=== PATIENT | male | born 1970 | race Two or more races ===

== ENCOUNTER 2021-03-10 23:39 | Inpatient (IN) | payer MEDICAID, OTHER ==
[~2021-03-10] VITALS: Ht 162.6 cm; Wt 95.4 kg
[2021-03-11] MEDS ORDERED: ACETAMINOPHEN 325 MG TAB PO ONE (00:45)
[2021-03-11] MEDS ORDERED: PIPERACILLIN-TAZO 4.5GM 100 ML IV ONE (01:30)
[2021-03-11] MEDS ORDERED: SODIUM CHLORIDE 0.9% 1,000 ML IV ONE (01:30)
[2021-03-11 01:38] LABS: Basophils # (auto) 0 10 ^3/uL (0-0.2); Basophils % (auto) 0.3 % (0.0-2.0); Eosinophils # (auto) 0 10 ^3/uL (0-0.8); Eosinophils % (auto) 0.1 % (0.0-7.0); Hematocrit 47.1 % (41.0-53.0); Hemoglobin 16.6 g/dL (13.5-17.5); Lymphocytes # (auto) 1.2 10 ^3/uL (0.4-5.4); Lymphocytes % (auto) 8.1 % (10.0-50.0); Mean Corpuscular Hgb Conc. 35.3 g/dL (32.0-36.0); Mean Corpuscular Volume 93.6 fL (80.0-100.0); Monocytes # (auto) 0.8 10 ^3/uL (0-1.3); Monocytes % (auto) 5.4 % (0.0-12.0); Neutrophils % (auto) 86.1 % (37.0-80.0); Red Blood Cells 5.03 10^6/uL (4.5-5.90); Red Cell Distribution Width 12.8 % (11.8-14.3); White Blood Cell 15.1 10^3/uL (4.4-10.8)
[2021-03-11 01:54] LABS: Albumin 3.9 g/dL (3.4-5.0); Calcium 8.8 mg/dL (8.5-10.1); Potassium 3.8 mmol/L (3.5-5.1)
[2021-03-11 01:57] LABS: INR 1.01 (0.9-1.15); Partial Thromboplastin Time 25.5 sec (23.0-31.2)
[2021-03-11 01:58] LABS: BUN/Creatinine Ratio 18.4; Bilirubin, Total 1.5 mg/dL (0.2-1.0); Total Protein 8.1 g/dL (6.4-8.2)
[2021-03-11] MEDS ORDERED: MORPHINE SULF INJ 2 MG/ML SYRINGE 1ML IV PRN (04:30)
[2021-03-11] MEDS ORDERED: NITROGLYCERIN 0.4 MG SL TAB SL PRN (04:30)
[2021-03-11] MEDS ORDERED: ACETAMINOPHEN 325 MG TAB PO PRN (04:30)
[2021-03-11] MEDS ORDERED: DEXTROSE (50%) 50ML SYRG IV PRN (04:30)
[2021-03-11] MEDS ORDERED: ONDANSETRON HCL 4 MG/2 ML VIAL IV PRN ×2 (04:30→14:30)
[2021-03-11] MEDS ORDERED: SODIUM CHLORIDE 0.9% 1,000 ML IV SCH (04:30)
[2021-03-11] MEDS: cefTRIAXone 1GM/50ML D5W 50 ML IV SCH (05:42)
[2021-03-11] MEDS: metroNIDAZOLE 500MG/100ML 100 ML IV SCH ×3 (06:19→23:07)
[2021-03-11] MEDS: ACCU-CHEK COMFORT CURVE STRIP VI SCH ×2 (06:50→11:30)
[2021-03-11] MEDS: InsuLIN REG 1unit/0.01ml Soln (100units/ml) SC SCH ×2 (06:51→11:30)
[2021-03-11 07:09] LABS: Potassium 3.9 mmol/L (3.5-5.1)
[2021-03-11 07:12] LABS: Albumin 3.4 g/dL (3.4-5.0); BUN/Creatinine Ratio 16.1; Calcium 8.1 mg/dL (8.5-10.1)
[2021-03-11 07:21] LABS: Bilirubin, Total 1.6 mg/dL (0.2-1.0); Total Protein 7.3 g/dL (6.4-8.2)
[2021-03-11] MEDS: HYDROcodone-ACET 5/325MG TAB PO PRN (07:57)
[2021-03-11 07:59] LABS: Basophils # (auto) 0.1 10 ^3/uL (0-0.2); Basophils % (auto) 0.5 % (0.0-2.0); Eosinophils # (auto) 0 10 ^3/uL (0-0.8); Hematocrit 43.9 % (41.0-53.0); Hemoglobin 15.6 g/dL (13.5-17.5); Mean Corpuscular Hemoglobin 33.5 pg (28.0-32.0); Mean Corpuscular Hgb Conc. 35.7 g/dL (32.0-36.0); Monocytes # (auto) 1.6 10 ^3/uL (0-1.3); Monocytes % (auto) 9.8 % (0.0-12.0); Neutrophils # (auto) 12.8 10 ^3/uL (1.6-8.6); Neutrophils % (auto) 77.7 % (37.0-80.0); Nucleated Red Blood Cells % 0.1 %; Red Blood Cells 4.67 10^6/uL (4.5-5.90); White Blood Cell 16.5 10^3/uL (4.4-10.8)
[2021-03-11] MEDS ORDERED: ONDANSETRON HCL 4 MG/2 ML VIAL IV ONE (09:45)
[2021-03-11] MEDS ORDERED: fentaNYL CITRATE 100 MCG/2 ML VL IV ONE (09:45)
[2021-03-11] MEDS: FAMOTIDINE (10MG/ML) 2ML VL IV SCH ×2 (10:36→23:07)
[2021-03-11] MEDS ORDERED: BUPIVACAINE 0.25% INJ 50ML VIAL ONE (12:05)
[2021-03-11] MEDS ORDERED: ceFAZolin 1GM/50ML 50 ML IV ONE (12:11)
[2021-03-11] MEDS ORDERED: NEOSTIGMINE 1 MG/ML INJ (10mg/10ML VIAL) IV ONE (12:20)
[2021-03-11] MEDS ORDERED: PHENYLEPHRINE HCL 10 MG/ML VL IV ONE (12:20)
[2021-03-11] MEDS ORDERED: GLYCOPYRROLATE 0.2 MG/ML 1ML VIAL IV ONE (12:20)
[2021-03-11] MEDS ORDERED: fentaNYL CITRATE 100 MCG/2 ML VL ONE (12:21)
[2021-03-11] MEDS ORDERED: MIDAZOLAM HCL 1MG/1ML-2 ML VIAL ONE (12:22)
[2021-03-11] MEDS ORDERED: MEPERIDINE HCL (50 MG/ML) 1 ML VIAL ONE (12:22)
[2021-03-11] MEDS ORDERED: PROPOFOL 10 MG/ML 20 ML IV ONE (12:35)
[2021-03-11] MEDS ORDERED: DexAMETHasone SOD PHOS 10MG/1ML VIAL INJ ONE (12:35)
[2021-03-11] MEDS ORDERED: ACCU-CHEK COMFORT CURVE STRIP VI ONE (14:30)
[2021-03-11] MEDS ORDERED: MORPHINE SULFATE 4 MG/ML SYR/VIAL IV PRN (14:30)
[2021-03-11] MEDS ORDERED: HYDROmorphone HCL 2 MG/ML VL IV PRN (14:30)
[2021-03-11] MEDS ORDERED: LABETALOL HCL 5 MG/ML 4ML SYRINGE IV PRN (14:30)
[2021-03-11] MEDS ORDERED: ePHEDrine SULFATE 50 MG/ML AMP IV PRN (14:30)
[2021-03-11] MEDS ORDERED: hydrALAZINE HCL 20 MG/ML VL IV PRN (14:30)
[2021-03-11] MEDS ORDERED: MIDAZOLAM HCL 1MG/1ML-2 ML VIAL IV PRN (14:30)
[2021-03-11 17:00] VITALS: BP 100/60
[2021-03-11 22:00] VITALS: BP 119/68
[2021-03-11] MEDS ORDERED: InsuLIN REG 1unit/0.01ml Soln (100units/ml) SC SCH (22:00)
[2021-03-12] MEDS: SODIUM CHLORIDE 0.9% 1,000 ML IV SCH ×3 (00:45→09:50)
[2021-03-12 05:00] VITALS: BP 112/68
[2021-03-12] MEDS: metroNIDAZOLE 500MG/100ML 100 ML IV SCH ×3 (05:47→22:14)
[2021-03-12 06:01] LABS: Basophils # (auto) 0 10 ^3/uL (0-0.2); Basophils % (auto) 0.1 % (0.0-2.0); Eosinophils # (auto) 0 10 ^3/uL (0-0.8); Hematocrit 38.5 % (41.0-53.0); Hemoglobin 14.1 g/dL (13.5-17.5); Lymphocytes # (auto) 0.8 10 ^3/uL (0.4-5.4); Lymphocytes % (auto) 7.6 % (10.0-50.0); Mean Corpuscular Hemoglobin 34.9 pg (28.0-32.0); Mean Corpuscular Volume 95.6 fL (80.0-100.0); Monocytes # (auto) 0.9 10 ^3/uL (0-1.3); Neutrophils # (auto) 8.7 10 ^3/uL (1.6-8.6); Neutrophils % (auto) 83.3 % (37.0-80.0); Nucleated Red Blood Cells % 0.1 %; Red Blood Cells 4.03 10^6/uL (4.5-5.90); White Blood Cell 10.5 10^3/uL (4.4-10.8)
[2021-03-12 06:05] LABS: Mean Corpuscular Hgb Conc. 36.5 g/dL (32.0-36.0)
[2021-03-12] MEDS: cefTRIAXone 1GM/50ML D5W 50 ML IV SCH (06:35)
[2021-03-12 06:45] LABS: Albumin 2.7 g/dL (3.4-5.0); BUN/Creatinine Ratio 18.1; Bilirubin, Total 1.5 mg/dL (0.2-1.0); Total Protein 6.1 g/dL (6.4-8.2)
[2021-03-12 09:00] VITALS: BP 113/70
[2021-03-12] MEDS: FAMOTIDINE (10MG/ML) 2ML VL IV SCH ×2 (09:49→22:15)
[2021-03-12 13:11] VITALS: BP 121/75
[2021-03-12 17:00] VITALS: BP 113/68
[2021-03-12 22:00] VITALS: BP 122/78
[2021-03-13 05:00] VITALS: BP 116/74
[2021-03-13] MEDS: metroNIDAZOLE 500MG/100ML 100 ML IV SCH (05:45)
[2021-03-13] MEDS: SODIUM CHLORIDE 0.9% 1,000 ML IV SCH (05:45)
[2021-03-13] MEDS: cefTRIAXone 1GM/50ML D5W 50 ML IV SCH (06:39)
[2021-03-13 09:00] VITALS: BP 125/69
[2021-03-13] MEDS: FAMOTIDINE (10MG/ML) 2ML VL IV SCH (10:00)
[2021-03-13 10:05] VITALS: BP 125/69
[2021-03-13] MEDS: HYDROcodone-ACET 5/325MG TAB PO PRN (12:47)
[2021-03-13 13:00] VITALS: BP 129/84
== END 2021-03-13 13:00 | disposition home or self-care (01) | DRG 233 ==
LOC: ER 23:47 → TELE 03-11 04:26 → TELE-EAST 03-11 15:15
PROVIDERS: ADMIT Nurse Practitioner Family; ATTEND Family Medicine
PROC: 0DTJ4ZZ Resection of Appendix, Percutaneous Endoscopic Approach (ICD-10-PCS; principal; 2021-03-11 12:14)
DX: K35.33 Acute appendicitis with perforation, localized peritonitis, and gangrene, with abscess (principal); E11.65 Type 2 diabetes mellitus with hyperglycemia; K76.0 Fatty (change of) liver, not elsewhere classified; D72.829 Elevated white blood cell count, unspecified; K40.90 Unilateral inguinal hernia, without obstruction or gangrene, not specified as recurrent; I10 Essential (primary) hypertension; Z20.822 Contact with and (suspected) exposure to COVID-19
CPT/HCPCS: 36415; 74176; 80053; 82962; 83036; 83690; 85025; 85610; 85730; 86850; 86900; 86901; 87426; 96365; 96367; G0378; J0690; J0696; J1100; J2250; J2405; J2543; J2704; J3490